=== PATIENT | male | born 1960 | race Hispanic/Latino ===

== ENCOUNTER 2017-09-04 07:07 | Day surgery (SDC) | payer BC ==
[2017-09-04] MEDS ORDERED: ECOTRIN PO NR (08:07)
[2017-09-04 08:49] LABS: Basophils # (Auto) 0.1 K/mm3 (0.0-0.1); Basophils % (Auto) 0.8 % (0.0-1.8); Eosinophils # (Auto) 0.1 K/mm3 (0.0-0.4); Eosinophils % (Auto) 1.1 % (0.0-4.3); Hematocrit 40.7 % (35.5-45.6); Lymphocytes # (Auto) 1.7 K/mm3 (1.2-5.4); Lymphocytes % (Auto) 24.6 % (13.4-35.0); Mean Corpuscular HGB Conc 34 % (32-34); Mean Corpuscular Hemoglobin 32 pg (28-32); Mean Corpuscular Volume 94 fl (84-94); Monocytes # (Auto) 0.6 K/mm3 (0.0-0.8); Monocytes % (Auto) 9.4 % (0.0-7.3); Platelet Count 232 K/mm3 (140-440); Red Blood Count 4.35 M/mm3 (3.65-5.03); Red Cell Distribution Width 14.5 % (13.2-15.2)
[2017-09-04 08:59] LABS: INR 0.84 (0.87-1.13)
[2017-09-04] MEDS ORDERED: NACL 0.9% 500 ML 500 ML IV SCH (09:00)
[2017-09-04 09:56] LABS: BUN/Creatinine Ratio 14; Blood Urea Nitrogen 11 mg/dL (9-20); Calcium 9.1 mg/dL (8.4-10.2); Hemolysis Index 9
[2017-09-04] MEDS ORDERED: CALAN ONE (10:46)
[2017-09-04] MEDS ORDERED: XYLOCAINE 2% INFILTRATI ONE (10:46)
[2017-09-04] MEDS ORDERED: HEPARIN 10,000 UNITS/10 ML ONE (10:46)
[2017-09-04] MEDS ORDERED: NITROGLYCERIN SYRINGE 3 ML ONE (10:46)
[2017-09-04] MEDS ORDERED: HEPARIN/NS 5000 UNIT/500ML(CATH LAB) 1,000 ML IR ONE (10:46)
[2017-09-04] MEDS ORDERED: VERSED ONE (10:47)
[2017-09-04] MEDS ORDERED: SUBLIMAZE ONE (10:47)
--- NOTE | 2017-09-04 11:48 | Short Stay Summary ---
Short Stay Documentation Date of service: 09/04/17 - History H&P: obtained from office - Allergies and Medications Current Medications: Allergies Penicillins Allergy (Unverified 09/04/17 07:07) Unknown Home Medications Medication Instructions Recorded Confirmed Last Taken Type Apixaban [Eliquis] 5 mg PO BID 09/04/17 09/04/17 08/31/17 History Digoxin [Lanoxin] 0.25 mg PO DAILY 09/04/17 09/04/17 09/04/17 History Furosemide [Lasix TAB] 40 mg PO QDAY 09/04/17 09/04/17 09/04/17 History ISOSORBIDE MONOnitrate [Imdur ER] 30 mg PO DAILY 09/04/17 09/04/17 09/04/17 History Metoprolol Tartrate 100 mg PO BID 09/04/17 09/04/17 09/04/17 History Active Medications Aspirin (Ecotrin) 325 mg PO ONCE NR Stop: 09/04/17 12:00 Last Admin: 09/04/17 08:52 Dose: 325 mg Sodium Chloride (Nacl 0.9% 500 Ml) 500 mls @ 50 mls/hr IV DIRECT CUAUHTEMOC Stop: 09/04/17 18:59 Last Admin: 09/04/17 08:53 Dose: 50 mls/hr - Physical exam General appearance: no acute distress Integumentary: no rash HEENT: Atraumatic Lungs: Clear to auscultation Breasts: deferred Heart: Regular rate Gastrointestinal: normal Male Genitourinary: deferred Female Genitourinary: deferred Rectal Exam: deferred Extremities: no ischemia Neurological: Normal gait - Brief post op/procedure progress note Date of procedure: 09/04/17 Pre-op diagnosis: Abnormal MPI, Afib Post-op diagnosis: same Procedure: LHC, LV gram Anesthesia: MAC Findings: See report Surgeon: FITZ HIGUERA Estimated blood loss: none Pathology: none Condition: stable - Hospital course Hospital course: Uneventful - Disposition Condition at discharge: Good Disposition: DC-01 TO HOME OR SELFCARE Short Stay Discharge Plan Activity: advance as tolerated Weight Bearing Status: Weight Bear as Tolerated Diet: low fat, low cholesterol, low salt Wound: keep clean and dry Follow up with: CEE C[place]AND NP [Other] - 7 Days
--- NOTE | 2017-09-04 12:10 | Cardiac Catherization Report ---
INDICATION: Abnormal myocardial perfusion imaging scan, atrial fibrillation. ORDERING PHYSICIAN: Walt Stephens MD PROCEDURES PERFORMED: 1. Selective left and right coronary angiography. 2. Left ventriculography. DESCRIPTION OF PROCEDURE: 1.After obtaining written consent, the patient was draped in sterile technique. 2.A 2% lidocaine was injected into the right wrist. 3.A 5-[place] vascular sheath was inserted into the right radial artery. 4.A 5-[place] Eighty Four catheter was used to selectively engage the left coronary artery. 5.A 5-[place] 3DRC catheter was used to selectively engage the right coronary artery. 6.A 5-[place] 3DRC catheter was used to hand inject the left ventriculogram. 7.No complications occurred during the procedure. 8.Hemostasis was achieved at the end of the procedure using manual pressure. 9.Estimated blood loss was minimal. 10.Specimen removed was none. 11.Physician and the patient [id number] sedation start time is 11:17 a.m. 12.Physician and the patient sedation [id number] sedation stop time is 11:35 a.m. 13.Total sedation time is 18 minutes. 14.Sedation administered was 1 mg of IV Versed and 25 mcg of IV fentanyl. FINDINGS: HEMODYNAMICS: Aortic pressure was 112/66. The left ventricular systolic pressure is mmHg. LVEDP was measured at 27 mmHg. CARDIAC STRUCTURES: The left ventricle is normal in size and systolic function. No regional motion abnormality detected. CORONARY ANATOMY: 1. This is a right dominant circulation. 2. The left main is angiographically normal. 3. The LAD is angiographically normal. There is evidence of mild mid LAD intramyocardial bridging. 4. The left circumflex artery is normal. 5. The right coronary artery is angiographically normal. IMPRESSION: 1. Angiographically normal coronary circulation except for mild to mid LAD bridging. 2. Normal left ventricular size and systolic function. RECOMMENDATIONS: Follow up with referring store coordinator. JOB# [id number] LILIBETH/ESTEBAN
[2017-09-04 13:44] VITALS: BP 106/71
== END 2017-09-04 14:00 | disposition home or self-care (01) ==
LOC: CATHLABREC 07:07
PROVIDERS: ATTEND Internal Medicine
DX: R93.49 Abnormal radiologic findings on diagnostic imaging of other urinary organs (principal); R06.00 Dyspnea, unspecified; M19.90 Unspecified osteoarthritis, unspecified site; J45.909 Unspecified asthma, uncomplicated; E78.5 Hyperlipidemia, unspecified; G47.33 Obstructive sleep apnea (adult) (pediatric); I10 Essential (primary) hypertension; I42.9 Cardiomyopathy, unspecified; I48.1 Persistent atrial fibrillation; E66.9 Obesity, unspecified; Q24.5 Malformation of coronary vessels; Z88.0 Allergy status to penicillin; Z79.82 Long term (current) use of aspirin; Z82.49 Family history of ischemic heart disease and other diseases of the circulatory system
CPT/HCPCS: 36415; 80048; 85025; 85610; 85730; 93005; 93010; 93458; 99156; 99157; C1887; C1894; J1644; J2250; J3010; J7040; Q9967